=== PATIENT | female | born 1995 | race African-American/Black ===

== ENCOUNTER 2017-11-03 12:03 | Emergency (ER) | payer SELFPAY ==
--- NOTE | 2017-11-03 12:36 | ED ---
HPI Chest Pain - HPI Summary HPI Summary: This is scribe Ed Amanda documenting for attending Mt Coats MD. I, Dr. Coats, personally performed the services described in this documentation as scribed in my presence and it is both accurate and complete. 22 y/o female presents the ED c/o sudden onset mid-sternal CP radiating to the back starting 1.5 hours ago. Pt was standing in line when it started. Pain rated 5/10 ,described as a tightness. Denies SOB, diaphoresis. Associated sx: lightheadedness walking home from the store. Previous 2 minute episodes around 2 years ago. PMHx depression, anxiety, asthma. No Sx. - History of Current Complaint Chief Complaint: EDChestWallPain Time Seen by Provider: 11/03/17 12:33 Hx Obtained From: Patient Onset/Duration: Started Hours Ago, Still Present Timing: Constant Initial Severity: Moderate Current Severity: Moderate Pain Intensity: 5 Pain Scale Used: 0-10 Numeric Chest Pain Radiates: Yes Chest Pain Radiates To:: Back Character: Tightness Alleviating Factor(s): Nothing Associated Signs and Symptoms: Positive: Lightheadedness - Allergy/Home Medications Allergies/Adverse Reactions: Allergies Allergy/AdvReac Type Severity Reaction Status Date / Time No Known Allergies Allergy Verified 11/03/17 12:06 Home Medications: Home Medications Cholecalciferol TAB* [Vitamin D TAB*] 400 units PO WEEKLY 11/03/17 [History Confirmed 11/03/17] Fluoxetine HCl [Prozac] 40 mg PO DAILY 11/03/17 [History Confirmed 11/03/17] Gabapentin CAP(*) [Neurontin 100 mg CAP(*)] 100 mg PO DAILY 11/03/17 [History Confirmed 11/03/17] PMH/Surg Hx/FS Hx/Imm Hx Previously Healthy: No Endocrine/Hematology History: Denies: Hx Diabetes Respiratory History: Reports: Hx Asthma Psychiatric History: Reports: Hx Anxiety, Hx Depression Infectious Disease History: No Infectious Disease History: Denies: Traveled Outside the [place] in Last 30 Days - Family History Known Family History: Positive: Unknown - Social History Occupation: Student Alcohol Use: None Hx Substance Use: Yes Substance Use Type: Reports: Marijuana Hx Tobacco Use: No Smoking Status (MU): Never Smoked Tobacco Review of Systems Constitutional: Negative Eyes: Negative ENT: Negative Positive: Chest Pain Respiratory: Negative Gastrointestinal: Negative Genitourinary: Negative Musculoskeletal: Negative Skin: Negative Neurological: Other - lightheadedness Psychological: Normal All Other Systems Reviewed And Are Negative: Yes Physical Exam - Summary Physical Exam Summary: VITAL SIGNS: Reviewed. GENERAL: Patient is a well-developed and nourished female who is lying comfortable in the stretcher. Patient is not in any acute respiratory distress. HEAD AND FACE: No signs of trauma. No ecchymosis, hematomas or skull depressions. No sinus tenderness. EYES: PERRLA, EOMI x 2, No injected conjunctiva, no nystagmus. EARS: Hearing grossly intact. Ear canals and tympanic membranes are within normal limits. MOUTH: Oropharynx within normal limits. NECK: Supple, trachea is midline, no adenopathy, no JVD, no carotid bruit, no c- spine tenderness, neck with full ROM. CHEST: Symmetric, reproducible chest pain. LUNGS: Clear to auscultation bilaterally. No wheezing or crackles. CVS: Regular rate and rhythm, S1 and S2 present, no murmurs or gallops appreciated. ABDOMEN: Soft, non-tender. No signs of distention. No rebound no guarding, and no masses palpated. Bowel sounds are normal. EXTREMITIES: FROM in all major joints, no edema, no cyanosis or clubbing. NEURO: Alert and oriented x 3. No acute neurological deficits. Speech is normal and follows commands. SKIN: Dry and warm Triage Information Reviewed: Yes Vital Signs On Initial Exam: Initial Vitals Temp Pulse Resp BP Pulse Ox 97.8 F 76 18 107/62 98 11/03/17 12:05 11/03/17 12:05 11/03/17 12:05 11/03/17 12:05 11/03/17 12:05 Vital Signs Reviewed: Yes Diagnostics - Vital Signs Vital Signs Temp Pulse Resp BP Pulse Ox 11/03/17 12:05 97.8 F 76 18 107/62 98 - Laboratory Result Diagrams: 11/03/17 13:04 11/03/17 13:04 Lab Statement: Any lab studies that have been ordered have been reviewed, and results considered in the medical decision making process. - Radiology CXR Xray Interpretation: No Acute Changes Radiology Interpretation Completed By: Radiologist - EKG 1 EKG Interpretation: 12:14 - SR @ [address] elevations, normal axis. Re-Evaluation - Re-Evaluation 1 Re-Evaluation Time: 15:20 Comment: discuss test results and findings, plan of care, d/c instructions Chest Pain Course/Dx - Course Assessment/Plan: Test results are without significant abnormalities, including D -Dimer < 200. I have no suspicion for PE. She was given Mg for hypomagnesemia and that her TSH low, for which she will f/u with PCP for further workup and management .Pt understand and agrees. Pt has all her questions answered and has no further concerns. - Diagnoses Provider Diagnoses: Atypical chest pain Discharge - Sign-Out/Discharge Documenting (check all that apply): Patient Departure - Discharge Plan Condition: Stable Disposition: HOME Prescriptions: Naproxen Sodium [Naproxen 275 MG TAB] 275 mg PO BID #20 tab Patient Education Materials: Chest Pain (ED) Referrals: [facility] [place] PHYSICIAN REFERRAL [Outside] - 4 Days (PLEASE F/U IN 3-5 DAYS) Additional Instructions: RETURN TO THE ED FOR CHANGING/WORSENING SYMPTOMS
[2017-11-03] MEDS ORDERED: Ketorolac INJ* 30 MG/ML 1 ML VIAL IV PUSH ONE (13:00)
[2017-11-03 13:17] LABS: ABS Basophils 0.1 10^3/ul (0-0.2); ABS Eosinophils 0.3 10^3/ul (0-0.6); ABS Lymphocytes 1.1 10^3/ul (1.0-4.8); ABS Monocytes 0.3 10^3/ul (0-0.8); ABS Neutrophils 3.1 10^3/ul (1.5-7.7); ABS Nucleated RBC 0 10^3/ul; Eosinophil % 5.2 % (0-6); Hematocrit 40 % (35-47); Hemoglobin 13.8 g/dl (12.0-16.0); Lymphocyte % 23.3 % (25-47); Mean Corpuscular HGB Conc 34 g/dl (31-36); Mean Corpuscular Hemoglobin 31 pg (27-31); Mean Corpuscular Volume 89 fL (80-97); Mean Platelet Volume 8.1 um3 (7.4-10.4); Nucleated Red Blood Cells % 0.1; Platelet Count 299 10^3/ul (150-450); Red Blood Count 4.52 10^6/ul (4.00-5.40); Red Cell Distribution Width 15 % (10.5-15); White Blood Count 4.9 10^3/ul (3.5-10.8)
[2017-11-03 13:36] LABS: EGFR Non-African American 92.8 (>60)
--- NOTE | 2017-11-03 14:25 | RAD ---
INDICATION: Chest pain. COMPARISON: There are no prior studies available for comparison. TECHNIQUE: A portable view of the chest was obtained. FINDINGS: Cardiac and mediastinal contours appear to be within normal limits. The lungs are clear. No pleural effusion is seen. IMPRESSION: NO EVIDENCE FOR ACUTE DISEASE.
[2017-11-03] MEDS ORDERED: Magnesium Oxide TAB* 400 MG PO ONE (15:21)
[2017-11-03 15:54] VITALS: BP 106/68
== END 2017-11-03 15:51 | disposition home or self-care (01) ==
LOC: ED 12:03
DX: R07.89 Other chest pain (principal); R42 Dizziness and giddiness; F32.9 Major depressive disorder, single episode, unspecified
CPT/HCPCS: 36415; 71045; 80053; 82550; 83605; 83735; 83880; 84443; 84484; 85025; 85379; 85730; 93005; 96374; 99282; J1885

== ENCOUNTER 2018-02-28 12:26 | Emergency (ER) | payer SELFPAY ==
[2018-02-28 12:44] VITALS: BP 108/72
--- NOTE | 2018-02-28 12:49 | UC ---
Throat Pain/Nasal Alex HPI - HPI Summary HPI Summary: 22 yo female presents with sore throat, headache, sinus pain/pressure/congestion , and intermittent vomiting for the last 3 days. She has felt warm at times, but has not taken her temperature. Has been taking ibuprofen OTC with mild relief. She is drinking well, but states she does not want to eat due to decreased appetite and vomiting. Denies cough, SOB, chest pain, abdominal pain, dysuria, flank pain. - History of Current Complaint Chief Complaint: UCGeneralIllness Stated Complaint: VOMITTING,SORE THROAT Time Seen by Provider: 02/28/18 12:48 Hx Obtained From: Patient Hx Last Menstrual Period: 02/15/18 Onset/Duration: Gradual Onset Severity: Mild Pain Intensity: 4 Pain Scale Used: 0-10 Numeric - Allergies/Home Medications Allergies/Adverse Reactions: Allergies Allergy/AdvReac Type Severity Reaction Status Date / Time No Known Allergies Allergy Verified 02/28/18 12:44 PMH/Surg Hx/FS Hx/Imm Hx - Additional Past Medical History Additional PMH: None - Surgical History Surgical History: None - Family History Known Family History: Positive: Unknown - Social History Occupation: Student Lives: Dormitory/Roommates Alcohol Use: None Substance Use Type: Marijuana Smoking Status (MU): Never Smoked Tobacco Review of Systems All Other Systems Reviewed And Are Negative: Yes Constitutional: Positive: Fever Skin: Positive: Negative Eyes: Positive: Negative ENT: Positive: Sore Throat, Nasal Discharge, Sinus Congestion, Sinus Pain/ Tenderness Respiratory: Positive: Negative Cardiovascular: Positive: Negative Gastrointestinal: Positive: Vomiting, Nausea Genitourinary: Positive: Negative Neurological: Positive: Negative Psychological: Positive: Negative Physical Exam - Summary Physical Exam Summary: GENERAL: NAD. WDWN. No pain distress. SKIN: No rashes, sores, lesions, or open wounds. HEENT: Head: AT/NC Eyes: EOM intact. Conjunctiva clear without inflammation or discharge. Ears: Hearing grossly normal. TMs intact, no bulging, erythema, or edema. Nose: Nasal mucosa mildly swollen and erythematous with yellow discharge. TTP maxillary and frontal sinus. Positive post nasal drip Throat: Posterior oropharynx moderate erythema and 2+ tonsillar enlargement. No exudates. Uvula midline. No hoarse voice or muffled voice. NECK: Supple. Mild TTP tonsillar LAD b/l. CHEST: CTAB. No r/r/w. No accessory muscle use. Breathing comfortably and in no distress. CV: RRR. Without m/r/g. Pulses intact. ABDOMEN: Soft. NTTP. No distention or guarding. No CVA tenderness. Bowel sounds present NEURO: Alert. PSYCH: Age appropriate behavior. Triage Information Reviewed: Yes Vital Signs: Initial Vital Signs Temp 99.3 F 02/28/18 12:39 Pulse 62 02/28/18 12:39 Resp 18 02/28/18 12:39 BP 108/72 02/28/18 12:39 Pulse Ox 98 02/28/18 12:39 Laboratory Tests 02/28/18 12:53 Group A Strep Rapid Negative Vital Signs Reviewed: Yes Throat Pain/Nasal Course/Dx - Course Course Of Treatment: Pharyngitis/tonsillitis. POC strep negative. - Differential Dx/Diagnosis Provider Diagnosis: Pharyngitis, Nausea & vomiting Discharge - Sign-Out/Discharge Documenting (check all that apply): Patient Departure All imaging exams completed and their final reports reviewed: No Studies - Discharge Plan Condition: Stable Disposition: HOME Prescriptions: Amoxicillin/Clavulanate TAB* [Augmentin TAB 875*] 875 mg PO BID #14 tab Ondansetron ODT TAB* [Zofran 4 MG Odt TAB*] 4 mg PO Q8H PRN #12 tab.odt PRN Reason: Nausea Patient Education Materials: Tonsillitis (ED) Referrals: No Primary Care Phys,NOPCP [Primary Care Provider] - Additional Instructions: If you develop a fever, shortness of breath, chest pain, new or worsening symptoms - please call your PCP or go to the ED. - Billing Disposition and Condition Condition: STABLE Disposition: Home
== END 2018-02-28 13:15 | disposition home or self-care (01) ==
LOC: UCEAST 12:26
DX: J02.9 Acute pharyngitis, unspecified (principal); R11.2 Nausea with vomiting, unspecified
CPT/HCPCS: 87651; 99212; G0463